=== PATIENT | male | born 1950 | race Caucasian/White ===

== ENCOUNTER 2019-01-20 21:23 | Emergency (ER) | payer OTHER ==
[~2019-01-20] VITALS: Ht 193 cm; Wt 157.8 kg
[~2019-01-20 21:23] MED LIST: ALLOPURINOL 10100 M1; EDARBI80 MG PO; IBUPROFEN 600600 M1 PO; IBUPROFEN 800800 M1; INDAPAMIDE1.25 MG; TRAMADOL 50 MG50 MG PO
[2019-01-20] MEDS ORDERED: KEFLEX500 M1 PO ×2 (22:21→22:22)
[2019-01-20 22:41] VITALS: BP 135/60
== END 2019-01-20 22:42 | disposition home or self-care (01) ==
LOC: ER 21:23
DX: R04.0 Epistaxis (principal); I10 Essential (primary) hypertension; M19.90 Unspecified osteoarthritis, unspecified site; M10.9 Gout, unspecified; Z96.642 Presence of left artificial hip joint

== ENCOUNTER 2020-07-18 07:28 | Inpatient (IN) | payer OTHER ==
[~2020-07-18] VITALS: Ht 190.5 cm; Wt 175.1 kg
--- NOTE | ~2020-07-18 | EMS ---
[address] [address] EMS Patient Care Report Name: RUSSELL JUAREZ Room #: PRE Ailyn#: [id number] Admission: Attend Phys: Discharge: Date of : 54 Report #: [id number] THIS REPORT FOR: //name// Report Transmitted: 07/18/2020 07:16 EMS Care Summary [facility] MED-ACT Incident [id number] @ 07/18/2020 06:48 Incident Location [address] [place] [address] Patient PATTI JUAREZ Male, 70 Years 1950 Patient Address [address] [place] [address] Patient History Prostate Cancer, Patient Allergies No known allergies, Patient Medications Prednisone, Other, Diltiazem, Chief Complaint Weakness Disposition Transported No Lights/[place] Dispatch Reason Sick Person Transported To [facility] Narrative [id number] responded to a home for a 70 yo male reporting weakness and vomiting. Pt was found laying in bed of his home. Airway) open/clear. Breathing) full, unlabored. Circulation) pale, warm, dry. Pt is tracking on EMS arrival and does [address] [address] EMS Patient Care Report Name: RUSSELL JUAREZ Room #: PRE [facility]..#: [id number] Admission: Attend Phys: Discharge: Date of : 54 Report #: [id number] not appear to be in any distress. Pt states since Tuesday he has suffered bouts of diarrhea, vomiting and generalized weakness. Pt denies fever or any blood noted in his vomit or stool. Pt states he is still taking a "chemo" drug to help clear up any residual prostate cancer. He admits that medications does cause some amounts of nausea but states he has been taking it for 18 months. Pt denies any syncope but states at certain points he has felt slightly lightheaded. Pt states he had a doctor's appointment today but this morning do to his feeling of gen weakness does not feel like he can make it. [facility] provided initial V/S. Pt was able to ambulate to the nearby cot, placed in position of comfort and secured. Pt denies CARRILLO, CP, SOA, dizziness, weakness that is unilateral, visual changes, abd pain, nausea and vomiting, other recent illness/infection/trauma. Pt was moved to [facility]. bG and 12lead assessed. Pt continues to deny any nausea. He states he did dry heave earlier this morning. Pt is able to move all ext without any noted pain or difficulty. Pt's speech is clear and no facial droop is noted. Pt only states he feels generally weak. Treatment: V/S, EKG, bG, 12lead, temp Transport: Pt had no change in his LOC en route. Pt had no other complaints en route. V/S as above. Pt was assisted from cot to bed in ER room 9. Pt report given to receiving RN. Initial Vitals @07:15P: 91,BP: 120/70,SpO2: 99, @07:07P: 64,BP: 128/65,SpO2: 100, @07:11P: 106,Temp: 98.6F,Glucose: 111,SpO2: 98,MT Suspected: false @PTAP: 70,R: 12,BP: 130/68,Pain: 0/10,GCS: 15,SpO2: 100,Revised Trauma: 12, Assessments @07:08MENTAL:Person Oriented,Time Oriented,Event Oriented,Place Oriented,SKIN:Pale,HEENT:Head/Face: No Abnormalities,LUNG SOUNDS:General: No Abnormalities,ABDOMEN:General: No Abnormalities,PELVIS//GI:No Abnormalities,EXTREMITIES:Left Arm: No Abnormalities,Right Arm: No Abnormalities,Left Leg: No Abnormalities,Right Leg: No Abnormalities,PULSE:NEURO:No Abnormalities, Impression Generalized Weakness Procedures @07:1112-Lead ECG Timeline CLINICAL RESEARCH ANALYST,BP: 130/68 M,PULSE: 70,RR: 12 R,SPO2: 100 Ox,ETCO2: ,BG: ,PAIN: 0,GCS: 15, [address] [address] EMS Patient Care Report Name: RUSSELL JUAREZ Room #: PRE M.R.#: [id number] Admission: Attend Phys: Discharge: Date of : 54 Report #: [id number] 06:46,Call Received 06:46,Psap Call 06:48,Dispatched 06:50,En Route 06:58,On Scene 07:03,At Patient 07:07,BP: 128/65 M,PULSE: 64,RR: R,SPO2: 100 Ox,ETCO2: ,BG: ,PAIN: ,GCS: , 07:11,12-Lead ECG, 07:11,BP: / M,PULSE: 106,RR: R,SPO2: 98 Ox,ETCO2: ,B,PAIN: ,GCS: , 07:13,Depart Scene 07:15,BP: 120/70 M,PULSE: 91,RR: R,SPO2: 99 Ox,ETCO2: ,BG: ,PAIN: ,GCS: , 07:22,At Destination 07:44,Call Closed Disclaimer v1.1 Copyright 2020 [employer] (acquired by [employer]) This EMS Care Summary contains data elements from the applicable legal record (which may be displayed differently). It is designed to provide pertinent information for the following purposes: continuity of care, clinical quality, and state data reporting. The complete legal record is available to ED staff and administrators of the receiving hospital in ES's Patient Tracker. All data is provided "as is."
[~2020-07-18 07:28] MED LIST changes: +KEFLEX500 M1 PO
[2020-07-18 07:29] VITALS: BP 153/61
[2020-07-18] MEDS ORDERED: ZYTIGA500 MG PO (07:34)
[2020-07-18] MEDS ORDERED: CIALIS5 MG PO ×2 (07:36→15:28)
[2020-07-18] MEDS ORDERED: DILTIAZEM 24HR120 M1 PO (07:36)
[2020-07-18] MEDS ORDERED: PREDNISONE 5 MG5 M1 PO (07:36)
[2020-07-18] MEDS ORDERED: ELIQUIS5 MG PO (07:36)
[2020-07-18] MEDS ORDERED: TAMSULOSIN HCL0.4 MG PO (07:37)
[2020-07-18] MEDS ORDERED: VITAMIN D21250 MC1 PO (07:37)
[2020-07-18 08:13] LABS: HEMATOCRIT 21.3 % (42.0-52.0); HEMOGLOBIN 7.4 gm/dL (14.0-18.0); MCH 32.6 pg (26.0-34.0); MCHC 34.8 g/dL (28.0-37.0); MCV 93.8 fL (80.0-100.0); PLATELET COUNT 201 thou/uL (150-400); RBC 2.27 mil/uL (4.50-6.00); RDW 14.4 % (10.5-14.5); WBC 7.8 thou/uL (4.0-11.0)
--- NOTE | 2020-07-18 08:38 | EKG ---
[facility] [place] [address] ELECTROCARDIOGRAM REPORT Name: RUSSELL JUAREZ Room #: PRE [facility].#: [id number] Admission: Attend Phys: Discharge: Date of : 54 Report #: [id number] THIS REPORT FOR: cc: Brett Burgos MD, Luis F. 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 : 1950 Requested By: Gal Benitez Order Number: [id number] MD: David Cordova Measurements Intervals [place] Rate: 76 P: OK: QRS: 82 QRSD: 107 T: 37 QT: 377 QTc: 424 Interpretive Statements Atrial fibrillation Borderline right axis deviation Low voltage, extremity and precordial leads Minimal ST depression, inferior leads No previous ECG available for comparison Electronically Signed On 07-18-2020 8:37:49 CDT by David Cordova [email or web address] <ELECTRONICALLY SIGNED> By: David Cordova MD 07/18/20 0837 [id number] David Cordova MD /DONALD
--- NOTE | 2020-07-18 08:38 | NUR ---
ADDRESS: SAME ON LICENSE PHONE: [phone] (HOME), [phone] (CELL) EMERGENCY CONTACT: BRENDA FORDE (SPOUSE) PHONE: [phone] EMPLOYER: RETIRED SS: [id number]
[2020-07-18 08:39] LABS: ALBUMIN 2.9 g/dL (3.4-5.0); BUN 11 mg/dL (7-18); CALCIUM 8.1 mg/dL (8.5-10.1); CHLORIDE 81 mmol/L (98-107); CO2 24 mmol/L (21-32); CREATININE 0.6 mg/dL (0.7-1.3); GLUCOSE 107 mg/dL (74-106); LIPASE 55 U/L (73-393); MAGNESIUM 1.3 mg/dL (1.8-2.4); SGOT 78 U/L (15-37); SGPT 42 U/L (30-65); TOTAL BILIRUBIN 0.6 mg/dL (0.2-1.0); TOTAL PROTEIN 6.4 g/dL (6.4-8.2); TROPONIN-I <0.06 ng/mL (<0.06)
[2020-07-18 08:40] LABS: ANION GAP 11 mmol/L (7-16)
[2020-07-18 08:42] LABS: POTASSIUM 2.8 mmol/L (3.5-5.1); SODIUM 116 mmol/L (136-145)
[2020-07-18 08:50] LABS: URINE BILIRUBIN NEGATIVE (Negative); URINE BLOOD NEGATIVE (Negative); URINE CLARITY CLEAR; URINE COLOR YELLOW; URINE GLUCOSE-RANDOM* NEGATIVE (Negative); URINE KETONES NEGATIVE (Negative); URINE LEUKOCYTES-REFLEX NEGATIVE (Negative); URINE NITRITE-REFLEX NEGATIVE (Negative); URINE PROTEIN (DIPSTICK) TRACE (Negative); URINE UROBILINOGEN 0.2 E.U./dl (0.2-1.0)
[2020-07-18 08:55] LABS: ABSOLUTE NEUTROPHILS 6.5 thou/uL (1.4-8.2)
[2020-07-18 08:56] LABS: ANISOCYTOSIS 1+; POLYCHROMASIA OCCASIONAL
[2020-07-18 10:19] LABS: ALBUMIN 3.1 g/dL (3.4-5.0); TOTAL PROTEIN 6.1 g/dL (6.4-8.2)
[2020-07-18 11:08] VITALS: BP 116/89
[2020-07-18 11:28] VITALS: BP 139/63
[2020-07-18 11:59] VITALS: BP 148/79
[2020-07-18 15:50] VITALS: BP 143/75
--- NOTE | 2020-07-18 16:36 | NUR ---
ASSUMED PATIENT CARE THIS AFTERNOON AT APPROXIMATELY 1200. PATIENT CAME UP FROM ER, NEW ADMISSION. NO ACUTE DISTRESS NOTED AT TIME OF ARRIVAL TO UNIT. PATIENT TOLERATING DIET. LARGE LOOSE BM UPON ARRIVAL TO FLOOR. NO COMPLAINTS OF NAUSEA/ VOMITING. PATIENT AFIB WITH CONTROLLED RATE IN 90S. CARDIZEM GIVEN THIS SHIFT, PATIENT STATES HE HAS NOT TAKEN TODAY. PATIENT GIVEN TRAMADOL 50MG PO FOR GENERALIZED JOINT PAINS, STATES HE TYPICALLY TAKES 100MG AT HOME. ORDER GIVEN TO INCREASE DOSE OF TRAMADOL TO 100MG FROM DR. MARTINEZ. TOLERATED WELL. STATES PAIN IN MANAGABLE AT THIS TIME. PLAN TO HAVE EGD TOMORROW AT 11AM . EDUCATED ON NPO AFTER MIDNIGHT CONSENTS SIGNED AND PLACED IN CHART. FIRST COVID TEST RESULTS ASNEGATIVE, CALLED SUNITA ACUNA RN, AWAITING FOR ORDERS TO D/C OR CONTINUE ISOLATION.
--- NOTE | 2020-07-18 16:58 | NUR ---
OK TO D/C ISOLATION PER DR. CARLISLE. SPOKE WITH DR. MARTINEZ, STATES OK TO MOVE TO [facility] STATUS FLOOR. CALLED CL YOON TO MAKE AWARE.
[2020-07-18 17:28] LABS: TSH 1.425 uIU/mL (0.358-3.740)
[2020-07-18 18:29] LABS: CALCIUM 7.7 mg/dL (8.5-10.1); CREATININE 0.7 mg/dL (0.7-1.3); POTASSIUM 3.5 mmol/L (3.5-5.1)
[2020-07-18 19:53] VITALS: BP 111/62
[2020-07-18 23:18] LABS: CALCIUM 7.7 mg/dL (8.5-10.1); CREATININE 0.8 mg/dL (0.7-1.3); POTASSIUM 3.6 mmol/L (3.5-5.1)
[2020-07-19 06:34] VITALS: BP 125/68
[2020-07-19 07:35] LABS: HEMATOCRIT 20.8 % (42.0-52.0); HEMOGLOBIN 7.3 gm/dL (14.0-18.0); MCH 33.6 pg (26.0-34.0); MCHC 35.2 g/dL (28.0-37.0); MCV 95.7 fL (80.0-100.0); RBC 2.17 mil/uL (4.50-6.00); RDW 14.8 % (10.5-14.5); WBC 9.1 thou/uL (4.0-11.0)
[2020-07-19 07:50] LABS: ALBUMIN 2.9 g/dL (3.4-5.0); CALCIUM 7.9 mg/dL (8.5-10.1); CREATININE 0.5 mg/dL (0.7-1.3); POTASSIUM 3.7 mmol/L (3.5-5.1); TOTAL BILIRUBIN 0.5 mg/dL (0.2-1.0); TOTAL PROTEIN 6.3 g/dL (6.4-8.2)
[2020-07-19 07:55] VITALS: BP 110/53
[2020-07-19] MEDS ORDERED: PROTONIX 20 MG20 M1 PO (10:12)
[2020-07-19 10:50] VITALS: BP 110/53
[2020-07-19 11:59] VITALS: BP 110/53
--- NOTE | 2020-07-19 12:57 | NUR ---
ASSUMED CARE OF PATIENT AT 1030 AFTER PROCEDURE. ASSESSMENT CHARTED. MEDS GIVEN PER MAR. VSS. DOING WELL, TOLERATING POST OP. APPROVED TO D/C TODAY. UP X1 TO WC. LEFT UNIT AT 1300. VOICED NO NEEDS.
== END 2020-07-19 14:46 | disposition home or self-care (01) | DRG 378 ==
LOC: ER 07:28 → EROBS 10:24 → 3W 11:42 → 4W 07-19 06:15
PROVIDERS: Emergency Medicine; Nurse Practitioner; ADMIT Internal Medicine; ATTEND Internal Medicine
PROC: 0DB68ZX Excision of Stomach, Via Natural or Artificial Opening Endoscopic, Diagnostic (ICD-10-PCS; principal; 2020-07-19)
DX: K25.4 Chronic or unspecified gastric ulcer with hemorrhage (principal); E87.1 Hypo-osmolality and hyponatremia; D62 Acute posthemorrhagic anemia; I10 Essential (primary) hypertension; M10.9 Gout, unspecified; Z96.642 Presence of left artificial hip joint; M19.90 Unspecified osteoarthritis, unspecified site; E87.6 Hypokalemia; E83.42 Hypomagnesemia; N40.0 Benign prostatic hyperplasia without lower urinary tract symptoms; R19.7 Diarrhea, unspecified; K44.9 Diaphragmatic hernia without obstruction or gangrene; K21.0 Gastro-esophageal reflux disease with esophagitis; E88.09 Other disorders of plasma-protein metabolism, not elsewhere classified; I48.91 Unspecified atrial fibrillation; T39.395A Adverse effect of other nonsteroidal anti-inflammatory drugs [NSAID], initial encounter; Z20.828 Contact with and (suspected) exposure to other viral communicable diseases; Z85.46 Personal history of malignant neoplasm of prostate; Z79.01 Long term (current) use of anticoagulants; Z79.899 Other long term (current) drug therapy; Z92.3 Personal history of irradiation; Z87.891 Personal history of nicotine dependence; Z72.89 Other problems related to lifestyle; Y92.89 Other specified places as the place of occurrence of the external cause
CPT/HCPCS: 10879; 62110; 62900

== ENCOUNTER 2020-08-11 08:57 | Inpatient (IN) | payer OTHER ==
[~2020-08-11] VITALS: Ht 190.5 cm; Wt 177.5 kg
--- NOTE | ~2020-08-11 | EMS ---
[address] [address] EMS Patient Care Report Name: RUSSELL JUAREZ Room #: PRE [facility].Sobeida#: [id number] Admission: Attend Phys: Discharge: Date of : 54 Report #: [id number] THIS REPORT FOR: //name// Report Transmitted: 08/11/2020 08:43 EMS Care Summary [facility] MED-ACT Incident [id number] @ 08/11/2020 08:13 Incident Location [address] [place] [address] Patient PATTI JUAREZ Male, 70 Years 1950 Patient Address [address] [place] [address] Patient History Prostate Cancer, Patient Allergies No known allergies, Patient Medications Tadalafil, Apixaban, Tramadol, Tamsulosin, Other, Allopurinol, Diltiazem, Prednisone, Chief Complaint "I can't stop vomiting" Disposition Transported No Lights/[place] Dispatch Reason Sick Person Transported To [facility] Narrative EMS made contact with at front door of residence. had EMS enter residence on back side of house where her was rather than make entry at front of house. This caused a short delay in patient contact following arrival [address] [address] EMS Patient Care Report Name: RUSSELL JUAREZ Room #: PRE [facility].#: [id number] Admission: Attend Phys: Discharge: Date of : 54 Report #: [id number] to scene. 70yom found sitting upright on edge of bed, awake, alert and oriented, and tracking responders upon arrival. Pt reported that he has been nauseated and vomiting for the last 5 days. Pt reported he has been on a clear liquid diet with some soft foods, but is unable to keep it down. Pt reported he has been unable to keep some of his medications down due to the vomiting. Pt reported he was seen at [facility] for similar symptoms approximately 3 weeks ago and was diagnosed with a "stomach ulcer." Pt denied any blood in his emesis or bowel. Pt denied any chest pain, shortness of breath, diaphoresis, syncope, and has no other associated symptoms. EKG and 12 Lead obtained prior to moving to cot. Pt pulse rate was 50 with a EKG heart rate of 100. Pt was found to be in bigeminy with non-perfusing PVC's. Pt was able to ambulate a short distance to cot where he was positioned in position of comfort and secured with straps x3. Pt was moved to ambulance for further evaluation and treatment. IV was established prior to departure of scene along with a bG (138). Pt remained conversational throughout transport with no change in condition/complaints. Hospital was notified with pt information only. Upon arrival to ER, pt is alert and oriented, vital signs as noted, with no change in condition/complaints. Pt care was transferred to GEOSCIENCE PROFESSOR in ER RM 12 without incident. Pt ambulated from cot to bed without incident. Initial Vitals @08:40P: 106,Glucose: 138, @08:26P: 101,SpO2: 96,OK Suspected: false @08:29P: 103,SpO2: 99, @08:40P: 91,SpO2: 98, @08:34P: 107,SpO2: 79, @08:51P: 84,R: 14,BP: 138/71,SpO2: 98, @08:24P: 48,R: 14,BP: 156/73,Pain: 0/10,GCS: 15,SpO2: 96,Revised Trauma: 12, Assessments @08:24MENTAL:Person Oriented,Time Oriented,Place Oriented,Event Oriented,SKIN:Pale,HEENT:Head/Face: No Abnormalities,LUNG SOUNDS:General: No Abnormalities,ABDOMEN:General: No Abnormalities,PELVIS//GI:No Abnormalities,EXTREMITIES:Left Leg: Edema,Right Leg: Edema,Left Arm: No Abnormalities,Right Arm: No Abnormalities,PULSE:Radial: 2+ Normal,NEURO:No Abnormalities, Impression Nausea Procedures [facility] [address] [place] [address] EMS Patient Care Report Name: JUAREZRUSSELL Madi Room #: [facility] M.R.#: [id number] Admission: Attend Phys: Discharge: Date of : 54 Report #: [id number] @08:24ALS AssessmentResponse: UnchangedSucceeded@08:2912-Lead ECG@08:40Saline Lock 10cc (18 ga) Site: Antecubital-RightResponse: UnchangedSucceeded@08:38Surgical Mask on PatientResponse: Unchanged Timeline 08:11,Call Received 08:11,Psap Call 08:13,Dispatched 08:13,En Route 08:20,On Scene 08:23,At Patient 08:24,ALS Assessment,Response: UnchangedSucceeded, 08:24,BP: 156/73 M,PULSE: 48,RR: 14 R,SPO2: 96 Ox,ETCO2: ,BG: ,PAIN: 0,GCS: 15, 08:26,BP: / M,PULSE: 101,RR: R,SPO2: 96 Ox,ETCO2: ,BG: ,PAIN: ,GCS: , 08:29,12-Lead ECG, 08:29,BP: / M,PULSE: 103,RR: R,SPO2: 99 Ox,ETCO2: ,BG: ,PAIN: ,GCS: , 08:34,BP: / M,PULSE: 107,RR: R,SPO2: 79 Ox,ETCO2: ,BG: ,PAIN: ,GCS: , 08:38,Surgical Mask on Patient,Response: Unchanged 08:40,BP: / M,PULSE: 91,RR: R,SPO2: 98 Ox,ETCO2: ,BG: ,PAIN: ,GCS: , 08:40,Saline Lock 10cc 18 ga Site: Antecubital-Right,Response: UnchangedSucceeded, 08:40,BP: / M,PULSE: 106,RR: R,SPO2: Ox,ETCO2: ,B,PAIN: ,GCS: , 08:44,Depart Scene 08:51,BP: 138/71 M,PULSE: 84,RR: 14 R,SPO2: 98 Ox,ETCO2: ,BG: ,PAIN: ,GCS: , 08:54,At Destination 09:19,Call Closed Disclaimer v1.1 Copyright 2020 [employer] This EMS Care Summary contains data elements from the applicable legal record (which may be displayed differently). It is designed to provide pertinent information for the following purposes: continuity of care, clinical quality, and state data reporting. The complete legal record is available to ED staff and administrators of the receiving hospital in [employer]'s Patient Tracker. All data is provided "as is."
[~2020-08-11 08:57] MED LIST changes: +CIALIS5 MG PO; +DILTIAZEM 24HR120 M1 PO; +ELIQUIS5 MG PO; +PREDNISONE 5 MG5 M1 PO; +PROTONIX 20 MG20 M1 PO; +TAMSULOSIN HCL0.4 MG PO; +VITAMIN D21250 MC1 PO; +ZYTIGA500 MG PO
[2020-08-11 08:58] VITALS: BP 147/41
[2020-08-11 09:38] LABS: BASOPHILS 0.3 % (0.0-2.0); HEMATOCRIT 25.8 % (42.0-52.0); HEMOGLOBIN 8.7 gm/dL (14.0-18.0); LYMPHOCYTES 4.1 % (24.0-44.0); MCH 31.4 pg (26.0-34.0); MCHC 33.6 g/dL (28.0-37.0); MCV 93.3 fL (80.0-100.0); MONOCYTES 8.2 % (1.0-8.0); PLATELET COUNT 365 thou/uL (150-400); POLYS 85.4 % (36.0-66.0); RBC 2.76 mil/uL (4.50-6.00); RDW 15.1 % (10.5-14.5); WBC 5.8 thou/uL (4.0-11.0)
[2020-08-11 09:49] LABS: ALBUMIN 3.2 g/dL (3.4-5.0); CALCIUM 8.6 mg/dL (8.5-10.1); CREATININE 0.7 mg/dL (0.7-1.3); POTASSIUM 3.1 mmol/L (3.5-5.1); TOTAL BILIRUBIN 0.6 mg/dL (0.2-1.0); TOTAL PROTEIN 7.1 g/dL (6.4-8.2)
[2020-08-11 11:10] LABS: URINE BILIRUBIN NEGATIVE (Negative); URINE BLOOD NEGATIVE (Negative); URINE CLARITY CLEAR; URINE COLOR YELLOW; URINE GLUCOSE-RANDOM* NEGATIVE (Negative); URINE KETONES NEGATIVE (Negative); URINE LEUKOCYTES-REFLEX NEGATIVE (Negative); URINE NITRITE-REFLEX NEGATIVE (Negative); URINE PROTEIN (DIPSTICK) NEGATIVE (Negative); URINE UROBILINOGEN 0.2 E.U./dl (0.2-1.0)
[2020-08-11] MEDS ORDERED: SUPER THERAVIT1 EACH PO (12:18)
[2020-08-11] MEDS ORDERED: CALCIUM500 MG PO (12:18)
[2020-08-11] MEDS ORDERED: ACETAMINOPHEN500 M1 PO (12:19)
[2020-08-11 14:28] LABS: CHOLESTEROL 138 mg/dL (<200); HDL CHOLESTEROL 53 mg/dL (>40); LDL CHOLESTEROL 70 mg/dL (<100); TC:HDL 2.6 Ratio (Not establshd); TRIGLYCERIDE 76 mg/dL (<150); TROPONIN-I <0.06 ng/mL (<0.06); VLDL 15 mg/dL (<40)
[2020-08-11 15:21] LABS: TSH 1.834 uIU/mL (0.358-3.740)
--- NOTE | 2020-08-11 16:14 | EKG ---
[facility] [place] [address] ELECTROCARDIOGRAM REPORT Name: RUSSELL JUAREZ Room #: 170-12 ADM IN M.R.#: [id number] Admission: 08/11/20 Attend Phys: Lidya Brantley Discharge: Date of : 54 Report #: [id number] THIS REPORT FOR: cc: Brett Burgos MD, Thomas P. 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 : 1950 Requested By: Antolin Calderon Order Number: [id number] MD: Paul Zarate Measurements Intervals [place] Rate: 112 P: HI: QRS: 80 QRSD: 120 T: 43 QT: 374 QTc: 511 Interpretive Statements Atrial fibrillation Paired ventricular premature complexes Poor R wave progression Compared to ECG 07/18/2020 07:59:01 Ventricular premature complex(es) now present Electronically Signed On 08-11-2020 16:14:24 CDT by Paul Zarate [email or web address] <ELECTRONICALLY SIGNED> By: Paul Zarate MD, [facility] 08/11/20 1614 2 2 Paul Zarate MD, [facility] /EPI
[2020-08-11 16:20] LABS: FOLIC ACID 32.6 ng/mL (8.6-58.9)
[2020-08-11 17:46] LABS: % SATURATION 7 % (20-39); IRON 25 ug/dL (65-175); TIBC 376 ug/dL (250-450)
[2020-08-11 21:10] VITALS: BP 119/41
--- NOTE | 2020-08-11 21:13 | NUR ---
Called to give report but was told RN busy and will call back
--- NOTE | 2020-08-11 22:28 | NUR ---
Pt now going to CCU, called to give report and was told RN will call back
[2020-08-11 22:38] VITALS: BP 119/41
[2020-08-11 23:25] VITALS: BP 140/66
[2020-08-12 03:19] LABS: HEMATOCRIT 23.5 % (42.0-52.0); HEMOGLOBIN 8.1 gm/dL (14.0-18.0); MCH 31.8 pg (26.0-34.0); MCHC 34.5 g/dL (28.0-37.0); MCV 92.2 fL (80.0-100.0); RBC 2.55 mil/uL (4.50-6.00); RDW 15.2 % (10.5-14.5); WBC 6.2 thou/uL (4.0-11.0)
[2020-08-12 03:44] LABS: ALBUMIN 2.7 g/dL (3.4-5.0); BUN 6 mg/dL (7-18); CALCIUM 8.3 mg/dL (8.5-10.1); CHLORIDE 81 mmol/L (98-107); CO2 28 mmol/L (21-32); CREATININE 0.8 mg/dL (0.7-1.3); GLUCOSE 97 mg/dL (74-106); PHOSPHORUS 3.1 mg/dL (2.5-4.9); TROPONIN-I <0.06 ng/mL (<0.06)
[2020-08-12 04:43] LABS: ANION GAP 8 mmol/L (7-16)
[2020-08-12 04:44] LABS: POTASSIUM 2.5 mmol/L (3.5-5.1); SODIUM 117 mmol/L (136-145)
--- NOTE | 2020-08-12 07:51 | NUR ---
ASSUME CARE 2300. PT TO FLOOR BY ED STAFF. DENIES ANY PAIN. A/O X 4. MODERATE TOLERANCE TO ACTIVITY WITH SOB AND SOME WHEEZING NOTED WITH EXERTION. ASSESSMENT CHARTED. NOTED BIGEMINY/TRIGEMINY/COUPLETS/ AND RUNS OF VTACH. COMMUNICATED TO HEAD SCORER AND LABS ORDRERED. K 2.5/MG 1.3/NA 117. ORDERS RECEIVED AND ELECTROLYTE REPLACEMENT STARTED. INFORMATION COMMUNICATED TO ON COMING NURSE TO CONTINUE ELECTROLYTE REPLACEMENT THERAPY IN ORDER TO CORRECT ARRHYTHMIA. PLAN IS TO CONTINUE TO DIURESE PT AND PAY ATTENTION TO ELECTROLYTES. WILL CONTINUE TO MONITOR AND FOLLOW WIHT POC
[2020-08-12 08:30] VITALS: BP 117/73
--- NOTE | 2020-08-12 11:56 | 2DMMODE ---
[facility] [address] [place] [address] 2 D/M-MODE ECHOCARDIOGRAM Name: RUSSELL JUAREZ Room #: 209-P ADM IN ..#: [id number] Admission: 08/11/20 Attend Phys: Lidya Brantley Discharge: Date of : 54 Report #: [id number] THIS REPORT FOR: cc: Brett Burgos MD, Thomas P. MD Santiago, Patrick MD [facility] ~ APPROVED REPORT Study performed: 08/12/2020 11:03:15 EXAM: Comprehensive 2D, Doppler, and color-flow Echocardiogram Patient Location: Bedside Status: routine BSA: 2.99 HR: 89 bpm BP: 117/73 mmHg Rhythm: Atrial Fibrillation Other Information Study Quality: Adequate Technically limited study due to super morbid obese. Indications CHF. Hx: Afib, HTN. 2D Dimensions RVDd: 34.63 mm IVSd: 12.00 (7-11mm) LVOT Diam: 22.35 (18-24mm) LVDd: 51.95 mm PWd: 12.41 (7-11mm) Ascending Ao: 34.87 (22-36mm) LVDs: 41.40 (25-40mm) Aortic Root: 36.09 mm Volumes Left Atrial Volume (Systole) Single Plane 4CH: 90.80 mL Single Plane 2CH: 94.75 mL LA ESV Index: 33.00 mL/m2 Aortic Valve AoV Peak Walter.: 1.91 m/s AO Peak Gr.: 14.88 mmHg LVOT Max P.09 mmHg LVOT Max V: 1.51 m/s [facility] [address] [place] [address] 2 D/M-MODE ECHOCARDIOGRAM Name: RUSSELL JUAREZ Room #: 209-P [facility] IN [facility]#: [id number] Admission: 08/11/20 Attend Phys: Lidya Carroll Discharge: Date of : 54 Report #: [id number] Vmax: 3.10 cm2 Mitral Valve MV Decel. Time: 229.40 ms MV E Max Walter.: 1.75 m/s Pulmonary Valve PV Peak Walter.: 1.23 m/s PV Peak Gr.: 6.05 mmHg Tricuspid Valve TR Peak Walter.: 2.45 m/s RAP Estimate: 15.00 mmHg TR Peak Gr.: 24.15 mmHg PA Pressure: 39.00 mmHg Left Ventricle The left ventricle is normal size. There is normal LV segmental wall motion. Mild concentric left ventricular hypertrophy. Left ventricular systolic function is normal. LVEF is 50-55%. This study is not technically sufficient to allow evaluation of the LV diastolic function due to atrial fibrillation. Right Ventricle The right ventricle is normal size. The right ventricular systolic function is normal. Atria Mild biatrial enlargement. Aortic Valve Aortic valve is mildly calcified. No aortic regurgitation is present. There is no aortic valvular stenosis. Mitral Valve The mitral valve is normal in structure. Mild mitral regurgitation. No evidence of mitral valve stenosis. Tricuspid Valve The tricuspid valve is normal in structure. Mild tricuspid regurgitation. Estimated PAP is 35-40mmHg. Pulmonic Valve Pulmonic valve is not well visualized. Great Vessels The aortic root is normal in size. The ascending aorta is normal in size. IVC is dilated and collapses <50% with [facility] [address] [place] [address] 2 D/M-MODE ECHOCARDIOGRAM Name: RUSSELL JUAREZ Room #: 209-P [facility] IN [facility].#: [id number] Admission: 08/11/20 Attend Phys: Lidya Carroll Discharge: Date of : 54 Report #: [id number] inspiration. Pericardium There is no pericardial effusion. <Conclusion> Normal left atrial size with mild concentric hypertrophy Ejection fraction estimated 55%, negative for segmental wall motion abnormality Mild biatrial enlargement Normal right ventricular size and function Mild aortic valve calcification without stenosis Mild and mostly posteriorly directed mitral valve insufficiency Mild tricuspid valve insufficiency, PA systolic pressure estimated at 35 mmHg No pericardial effusion <ELECTRONICALLY SIGNED> By: Otilio Villegas MD, [facility] 08/12/20 1156 1156 1156 Otilio Villegas MD, FACC /INF
[2020-08-12 15:55] VITALS: BP 126/55
[2020-08-12 18:14] LABS: CALCIUM 8.3 mg/dL (8.5-10.1); CREATININE 0.8 mg/dL (0.7-1.3)
[2020-08-12 18:16] LABS: POTASSIUM 2.7 mmol/L (3.5-5.1)
--- NOTE | 2020-08-12 18:23 | NUR ---
ASSUMED CARE AT SHIFT CHANGE, ASSESSMENT DOCUMENTED AND VSS. PATEINT HAD MULTIPLE STOOLS AND DR RANGEL NOTIFIED, MEDICATED PER ORDERS. FARR TO DDD WITH ADQUATE AMOUNT OF URINE. PATIENT SLEPT MOST OF THE DAY, AND STATED THAT HE WAS GIVEN AMBIAM. CRITICAL K+ 2.[address] RANGEL, AND WILL CONTINUE WITH POC.
[2020-08-12 21:10] VITALS: BP 113/46
[2020-08-13] VITALS (7 sets, daily range): BP systolic 94–139; BP diastolic 38–89
[2020-08-13 06:30] LABS: CALCIUM 8.4 mg/dL (8.5-10.1); CREATININE 0.9 mg/dL (0.7-1.3); POTASSIUM 3.4 mmol/L (3.5-5.1)
--- NOTE | 2020-08-13 07:48 | NUR ---
PATIENT IS ADVANCING SLOWLY IN HIS CARE PLAN. VITAL SIGNS STABLE WITH PATIENT HAVING MILD COMPLAINTS OF BACK PAIN WHICH WERE TREATED APPROPRIATELY THROUGH MEDICATION AND REPOSITIONING. FULLY ORIENTED, PATIENT IS ABLE TO PARTICIPATE IN CARE AND CALL APPROPRIATELY FOR NEEDS. BREATHING STABLE ON ROOM AIR EVIDENCED BY ASSESSMENTS AND SPOT OXYGENATION CHECKS. LASIX TO GOOD AFFECT WITH PATIENT PRODUCING GOOD URINARY OUTPUT THROUGH FARR CATHETER. CONTINUE PLAN OF CARE.
--- NOTE | 2020-08-13 11:18 | NUR ---
Case discussed with the care team. Likely dc to home tomorrow. PT has worked with the pt and cleared him for dc to home when medically cleared. No cm interventions indicated at this time.
[2020-08-13 13:14] LABS: URINE CREATININE-RANDOM* 39.3 mg/dL
[2020-08-13 13:50] LABS: PROT/CREAT RATIO 0.4; URINE CREATININE-RANDOM* 40.4 mg/dL; URINE PROTEIN-RANDOM* 16.5 mg/dL (<11.9)
--- NOTE | 2020-08-13 18:06 | NUR ---
ASSESSMENT CHARTED, BP ON SOFT SIDE, AN MD IS AWARE.FARR DISCONTINUED TODAY AND PATIENT HAS BEEN VOIDING W/O ANY DIFFICULTIES.MILD REDNESS AND DERMATITIS AROUND HIS ABD FOLDS AND JANINA AREA NOTED, DR RANGEL NOTIFIED AND NYSTATIN POWDER RECIEVED. PROGRESSING TOWARDS GOALS AND WILL CONTINUE TO MONITOR.
--- NOTE | 2020-08-14 03:57 | NUR ---
ASSUMED CARE 0000. PT ALERT AND ORIENTED. VITALS STABLE. DENIES CHEST PAIN, NAUSEA OR VOMITING. PT HAD AN AMBIEN LAST NIGHT, AND WAS NOTED TO BE LILY, LOW 30s WHEN DEEP ASLEEP. PT REMAINED ASYMPTOMATIC. WILL CONTINUE TO MONITOR AND FOLLOW POC.
[2020-08-14 04:46] VITALS: BP 109/63
[2020-08-14 05:05] LABS: ALBUMIN 2.9 g/dL (3.4-5.0); CALCIUM 8.3 mg/dL (8.5-10.1); CREATININE 1.1 mg/dL (0.7-1.3); MAGNESIUM 1.4 mg/dL (1.8-2.4); PHOSPHORUS 4.3 mg/dL (2.5-4.9); POTASSIUM 3.4 mmol/L (3.5-5.1)
[2020-08-14 07:51] VITALS: BP 118/55
[2020-08-14 11:25] VITALS: BP 123/77
[2020-08-14 14:11] LABS: UREA NITROGEN-RANDM URINE 98 mg/dL (Not Estab.); URINE OSMOLALITY* 224 (())
[2020-08-14 15:17] VITALS: BP 108/50
--- NOTE | 2020-08-14 17:07 | NUR ---
Consult rec'd for 5N eval per pt/spouse request. Pt has been cleared by therapy. 5N choir director evaluated and the pt does not meet inpt rehab criteria. He does use a rwalker at home and spouse helps with iadl's and some setup for adl's. HH RN/PT and OT constantine recommended for f/u on med mngt, chf montioring, home saftey and home exercise program. Will f/u with the pt and spouse regarding their agency preferences. Possible dc 1-2 days.
[2020-08-14 17:10] VITALS: BP 108/50
--- NOTE | 2020-08-14 17:57 | NUR ---
ASSUMED CARE PT SHIFT CHANGE. ASSESSMENTS CHARTED.MEDS GIVEN PER DEC. PT ALERT AND ORIENTED.VSS. C/O PAIN MANAGED WITH PO MEDS. PT UP MOD ASSIST TOLERATING FAIR. O2 SATS WNL ON ROOM AIR. PT SEEN BY REHAB RUG INSPECTOR REFER TO RUG INSPECTOR NOTE. SPOUSE UNHAPPY WITH CONSULTAITON. PHYS THERAPY TO SEE PT AGAIN FOR FURTHER EVAL FOR 5N. PT CURRENTLY UP IN BED EATING DINNER DENYING NEEDS CONCERNS AT THIS TIME. WILL CONT TO MONITOR. WILL FOLLOW POC.
[2020-08-14 20:07] VITALS: BP 108/47
[2020-08-15] VITALS (7 sets, daily range): BP systolic 108–139; BP diastolic 50–66
--- NOTE | 2020-08-15 02:28 | NUR ---
ASSUMED CARE OF PATIENT AT 1900. PATIENT C/O BACK PAIN AT ASSESSMENT. ADMINISTERED PRN TYLENOL ORDERED. PATIENT REQUESTED PRN AMBIEN AT HS. AROUND MIDNIGHT PATIENT REPORTED AMBIEN NOT EFFECTIVE. OBTAINED ONETIME ORDER FOR BENADRYL. PATIENT DENIES SOA. 2+ BLE EDEMA OBSERVED. URINE OUTPUT ADEQUATE.
[2020-08-15 09:00] LABS: ALBUMIN 3.3 g/dL (3.4-5.0); CALCIUM 8.7 mg/dL (8.5-10.1); CREATININE 1.1 mg/dL (0.7-1.3); PHOSPHORUS 4.2 mg/dL (2.5-4.9); POTASSIUM 3.2 mmol/L (3.5-5.1)
[2020-08-15] MEDS ORDERED: METOPROLOL SUCC50 MG PO (09:56)
[2020-08-15] MEDS ORDERED: DEMADEX20 MG PO (09:56)
--- NOTE | 2020-08-15 10:26 | NUR ---
RECEIVED PT'S CARE AROUND 0730; PT. ON BED; ALERT; DURING AM ASSESSMENT AOX4; NO C/O PAIN; AM MEDICATIONS GIVEN; EDUCATED ABOUT FALL PRECAUTIONS; ST. UNDERSTANDING; NEEDS TO BE REMAINED; EDUCATED ABOUT D/C PROCESS; D/C ORDERS ON PLACED; PT. & NOTIFIED; ST. UNDERSTANDING; ASSESSMENT CHARGED; FOLLOWING POC; WORKING ON D/C PAPERS;
--- NOTE | 2020-08-15 11:33 | NUR ---
Pt dcing home today. Value Analysis Coordinator visited with the pt and his at bedside. HH referral and choices discussed. Pt indicates preference for [facility] as he sees Dr. Brett Burgos at [facility]. He is open to [facility] if [facility] is not able to accept or can not see him tomorrow. Pt has needed dme at home. DC mission planner to fax referral /dc orders to [facility].
--- NOTE | 2020-08-15 13:23 | NUR ---
PT DISCHARGING TODAY TO HOME FAXED REFERRAL TO [facility] HH SPOKE WITH INTAKE THEY COULD NOT SEE PT TIL TUESDAY AND PT NEEDS TO BE SEEN TOMORROW. FAXED REFERRAL TO [facility] HH SPOKE WITH JAY IN INTAKE SHE CAN ACCEPT AND HAVE A NURSE TO SEE PT TOMORROW. THEY WILL NOTIFY PT TO ARRANGE VISITS.
== END 2020-08-15 11:28 | disposition home health service (06) | DRG 292 ==
LOC: ER 08:57 → 2N 13:43 → EROBS 13:43 → 2N 22:48
PROVIDERS: Emergency Medicine; Internal Medicine Nephrology; Nurse Practitioner; Nurse Practitioner Adult Health; ADMIT Hospitalist; ATTEND Hospitalist
DX: I11.0 Hypertensive heart disease with heart failure (principal); E87.1 Hypo-osmolality and hyponatremia; I48.19 Other persistent atrial fibrillation; I47.1 Supraventricular tachycardia; Z68.42 Body mass index [BMI] 45.0-49.9, adult; I50.9 Heart failure, unspecified; E86.0 Dehydration; Z20.828 Contact with and (suspected) exposure to other viral communicable diseases; M10.9 Gout, unspecified; M19.90 Unspecified osteoarthritis, unspecified site; Z96.642 Presence of left artificial hip joint; E66.9 Obesity, unspecified; E83.42 Hypomagnesemia; K25.9 Gastric ulcer, unspecified as acute or chronic, without hemorrhage or perforation; M81.0 Age-related osteoporosis without current pathological fracture; N40.0 Benign prostatic hyperplasia without lower urinary tract symptoms; E78.5 Hyperlipidemia, unspecified; E87.6 Hypokalemia; Z79.01 Long term (current) use of anticoagulants; Z87.891 Personal history of nicotine dependence; Z87.11 Personal history of peptic ulcer disease; Z86.010 Personal history of colon polyps; Z85.46 Personal history of malignant neoplasm of prostate; Z79.1 Long term (current) use of non-steroidal anti-inflammatories (NSAID); Z71.41 Alcohol abuse counseling and surveillance of alcoholic
CPT/HCPCS: 10081

== ENCOUNTER → 2020-08-29 | Outpatient (CLI) | payer OTHER ==
[~2020-08-29] MED LIST changes: +ACETAMINOPHEN500 M1 PO; +CALCIUM500 MG PO; +DEMADEX20 MG PO; +METOPROLOL SUCC50 MG PO; +SUPER THERAVIT1 EACH PO
== END ==
LOC: SJCVC 10:23
PROVIDERS: ATTEND Internal Medicine Cardiovascular Disease
DX: R94.31 Abnormal electrocardiogram [ECG] [EKG] (principal); I48.91 Unspecified atrial fibrillation; I11.0 Hypertensive heart disease with heart failure; I50.9 Heart failure, unspecified; E78.00 Pure hypercholesterolemia, unspecified; D68.59 Other primary thrombophilia; K27.9 Peptic ulcer, site unspecified, unspecified as acute or chronic, without hemorrhage or perforation; E87.8 Other disorders of electrolyte and fluid balance, not elsewhere classified; K21.9 Gastro-esophageal reflux disease without esophagitis

== ENCOUNTER → 2020-09-01 | Outpatient (CLI) | payer OTHER | LOC: LAB 08:36 | PROVIDERS: ATTEND Internal Medicine Cardiovascular Disease | DX: Z01.812 Encounter for preprocedural laboratory examination (principal); Z20.828 Contact with and (suspected) exposure to other viral communicable diseases ==

== ENCOUNTER → 2020-09-04 | Outpatient (CLI) | payer OTHER ==
[~2020-09-04] VITALS: Ht 190.5 cm; Wt 159.2 kg
[~2020-09-04] MED LIST changes: +AMIODARONE HCL400 MG PO; +IRON325 M1 PO; +MAGNESIUM250 M1 PO; +POTASSIUM20 PO
[2020-09-04 07:18] VITALS: BP 130/65
--- NOTE | 2020-09-04 10:15 | TEE ---
[facility] [place] [address] TRANSESOPHAGEAL ECHOCARDIOGRAM Name: RUSSELL JUAREZ Room #: REG [facility]#: [id number] Admission: 09/04/20 Attend Phys: Otilio Villegas MD, Discharge: Date of : 54 Report #: [id number] THIS REPORT FOR: cc: NO FAMILY PHYSICIAN or PCP NO FAMILY PHYSICIAN or PCP Otilio Villegas MD [facility] ~ APPROVED REPORT Study performed: 09/04/2020 08:29:15 EXAM: Transesophageal Echocardiogram Patient Location: Out-Patient Status: routine BSA: 2.99 HR: 98 bpm BP: 130/81 mmHg Rhythm: Atrial Fibrillation Other Information Study Quality: Good Indications Atrial Fibrillation Cardioversion Procedure After obtaining informed consent, patient underwent transesophageal echo in the [facility] [employer]. Type of Sedation : Conscious Sedation Sedation was administered by SYEDA Jordan. Sedation was achieved intravenously with: Versed (8) Fentanyl (100) Transesophageal probe was inserted and advanced into esophagus without difficulty by Otilio Villegas MD, [facility]. Echo enhancement indication: R/O Septal defect. Echo enhancement agent administered: Agitated Saline The POOL was performed without complications. Synchronized Cardioversion attempted: Unsuccessful Rhythm following Synchronized Cardioversion: Afib Throughout the procedure, the blood pressure, pulse oximetry, cardiac rhythm, and rate were monitored. The patient tolerated the procedure without adverse effects. Recovery from conscious sedation was uneventful and vital signs were stable. 3 attempts. 125J; 150J; 200J. [facility] [address] [place] [address] TRANSESOPHAGEAL ECHOCARDIOGRAM Name: RUSSELL JUAREZ Room #: REG [facility]#: [id number] Admission: 09/04/20 Attend Phys: Otilio Villegas, Discharge: Date of : 54 Report #: [id number] Left Ventricle The left ventricle is normal size. There is normal LV segmental wall motion. Mild concentric left ventricular hypertrophy. Left ventricular systolic function is normal. LVEF is 55%. Right Ventricle The right ventricle is normal size. The right ventricular systolic function is normal. Atria Biatrial enlargement. Left atrium is moderately dilated. No shunting noted with contrast bubble injection. Mild right atrial enlargement Aortic Valve The aortic valve is normal in structure. No aortic regurgitation is present. There is no aortic valvular stenosis. Mitral Valve The mitral valve is normal in structure. Mild mitral regurgitation. No evidence of mitral valve stenosis. Tricuspid Valve The tricuspid valve is normal in structure. Mild tricuspid regurgitation. Pulmonic Valve The pulmonary valve is normal in structure. Great Vessels The aortic root is normal in size. The ascending aorta is normal in size. Pericardium There is no pericardial effusion. <Conclusion> Left atrial appendage mildly enlarged, no evidence of mass or clots detected Moderate left atrial enlargement Mild right atrial enlargement No evidence of atrial or ventricular septal defect by color-flow Doppler study Ejection fraction 55-60%, negative for segmental wall motion abnormality [facility] [address] [place] [address] TRANSESOPHAGEAL ECHOCARDIOGRAM Name: RUSSELL JUAREZ Room #: REG [facility]#: [id number] Admission: 09/04/20 Attend Phys: Otilio Villegas, Discharge: Date of : 54 Report #: [id number] Tricuspid aortic valve Mild central mitral valve insufficiency No pericardial effusion Patient was shocked [phone] in a biphasic mode. Patient remains in atrial fibrillation with a ventricular rate of 80 bpm Patient tolerated procedure well. <ELECTRONICALLY SIGNED> By: Otilio Villegas MD, FACC 09/04/20 [id number] [id number] Otilio Villegas MD, FACC /INF
== END | disposition home or self-care (01) ==
LOC: CATH 06:26
PROVIDERS: ATTEND Internal Medicine
DX: I48.91 Unspecified atrial fibrillation (principal); I08.1 Rheumatic disorders of both mitral and tricuspid valves; I11.0 Hypertensive heart disease with heart failure; I50.9 Heart failure, unspecified; M10.9 Gout, unspecified; M19.90 Unspecified osteoarthritis, unspecified site; Z98.890 Other specified postprocedural states; Z79.899 Other long term (current) drug therapy; Z87.891 Personal history of nicotine dependence; Z96.642 Presence of left artificial hip joint; Z79.01 Long term (current) use of anticoagulants